=== PATIENT | female | born 1985 | race Caucasian/White ===

== ENCOUNTER → 2017-01-19 | Outpatient (CLI) | payer BC ==
[2017-01-19 08:22] LABS: THYROID STIMULATING HORMONE 6.68 uIU/mL (0.47-4.68)
[2017-01-20 06:39] LABS: THYROID PEROXIDASE (TPO) AB >600 IU/mL (0-34)
[2017-01-20 11:22] LABS: THYROGLOBULIN AB <1.0 IU/mL (0.0-0.9)
== END ==
LOC: LAB 07:13
DX: E06.3 Autoimmune thyroiditis (principal)
CPT/HCPCS: 36415; 84439; 84443; 84481; 86376

== ENCOUNTER → 2017-03-17 | Outpatient (CLI) | payer BC ==
[2017-03-17 08:13] LABS: HEMATOCRIT 41.3 % (36.0-47.0); HEMOGLOBIN 13.5 g/dL (12.0-15.5); HGB HCT DIFFERENCE -0.8; MEAN CORPUSCULAR HEMOGLOBIN 27.1 pg (27.0-33.4); MEAN CORPUSCULAR HGB CONC 32.6 g/dL (32.0-36.0); MEAN CORPUSCULAR VOLUME 83 fl (80-97); RED BLOOD COUNT 4.97 10^6/uL (3.72-5.28)
[2017-03-17 08:41] LABS: ALANINE AMINOTRANSFERASE 36 U/L (9-52); ALBUMIN 4.2 g/dL (3.5-5.0); ALKALINE PHOSPHATASE 88 U/L (38-126); ANION GAP 10 (5-19); ASPARTATE AMINO TRANSFERASE 21 U/L (14-36); BILIRUBIN,DIRECT 0.3 mg/dL (0.0-0.4); BILIRUBIN,TOTAL 0.5 mg/dL (0.2-1.3); BLOOD UREA NITROGEN 16 mg/dL (7-20); CARBON DIOXIDE 26 mmol/L (22-30); CHLORIDE 104 mmol/L (98-107); CHOLESTEROL 177.81 mg/dL (0-200); CREATININE RESULT 0.67 mg/dL (0.52-1.25); Direct HDL 55 mg/dL (>40); GLUCOSE 107 mg/dL (75-110); POTASSIUM 4.3 mmol/L (3.6-5.0); SODIUM 140.1 mmol/L (137-145); TOTAL PROTEIN 7.4 g/dL (6.3-8.2); TRIGLYCERIDES 80 mg/dL (<150)
[2017-03-17 08:57] LABS: DIRECT LDL 100 mg/dL (<100)
[2017-03-17 09:18] LABS: THYROID STIMULATING HORMONE 5.02 uIU/mL (0.47-4.68)
[2017-03-18 07:09] LABS: VITAMIN D 25-HYDROXY 32.4 ng/mL (30.0-100.0)
[2017-03-20 12:00] LABS: THYROID PEROXIDASE (TPO) AB >600 IU/mL (0-34)
== END ==
LOC: LAB 07:50
PROVIDERS: ATTEND Nurse Practitioner
DX: R63.5 Abnormal weight gain (principal); E03.9 Hypothyroidism, unspecified; Z79.899 Other long term (current) drug therapy
CPT/HCPCS: 36415; 80053; 80061; 82306; 82607; 83036; 84439; 84443; 85027; 86376

== ENCOUNTER → 2017-06-02 | Outpatient (CLI) | payer BC ==
[2017-06-02 12:01] LABS: FREE T3 4.38 pg/mL (2.77-5.27)
[2017-06-02 12:14] LABS: THYROID STIMULATING HORMONE 0.14 uIU/mL (0.47-4.68)
== END ==
LOC: LAB 10:44
PROVIDERS: ATTEND Nurse Practitioner
DX: E06.3 Autoimmune thyroiditis (principal)
CPT/HCPCS: 36415; 84439; 84443; 84481; 86376

== ENCOUNTER → 2017-09-27 | Outpatient (CLI) | payer BC ==
[2017-09-27 12:26] LABS: FREE T3 3.39 pg/mL (2.77-5.27)
[2017-09-27 12:40] LABS: THYROID STIMULATING HORMONE 1.85 uIU/mL (0.47-4.68)
[2017-09-28 07:30] LABS: THYROGLOBULIN AB <1.0 IU/mL (0.0-0.9); THYROID PEROXIDASE (TPO) AB >600 IU/mL (0-34)
[2017-09-28 14:57] LABS: CALCITONIN SERUM <2.0 pg/mL (0.0-5.0)
== END ==
LOC: LAB 11:17
PROVIDERS: ATTEND Physician Assistant Medical
DX: E03.9 Hypothyroidism, unspecified (principal); E06.3 Autoimmune thyroiditis; E04.2 Nontoxic multinodular goiter; E66.9 Obesity, unspecified; Z68.43 Body mass index [BMI] 50.0-59.9, adult
CPT/HCPCS: 36415; 82308; 84439; 84443; 84481; 86376; 86800

== ENCOUNTER → 2017-12-31 | Outpatient (CLI) | payer BC ==
[2018-01-04 07:11] LABS: LUTEINIZING HORMONE 15.7 mIU/mL (.); PROLACTIN 11.8 ng/mL (4.8-23.3)
== END ==
LOC: LAB 10:48
PROVIDERS: ATTEND Obstetrics & Gynecology Gynecology
DX: Z13.29 Encounter for screening for other suspected endocrine disorder (principal)
CPT/HCPCS: 36415; 83002; 84146; 84403

== ENCOUNTER → 2018-04-27 | Outpatient (CLI) | payer BC ==
[2018-04-27 09:44] LABS: FREE T3 3.83 pg/mL (2.77-5.27); FREE T4 (FREE THYROXINE) 1.64 ng/dL (0.78-2.19)
[2018-04-27 09:58] LABS: THYROID STIMULATING HORMONE 0.66 uIU/mL (0.47-4.68)
== END ==
LOC: LAB 08:42
PROVIDERS: ATTEND Physician Assistant Medical
DX: E03.9 Hypothyroidism, unspecified (principal)
CPT/HCPCS: 36415; 84439; 84443; 84481

== ENCOUNTER → 2019-03-13 | Outpatient (CLI) | payer BC | LOC: LAB 10:48 | PROVIDERS: ATTEND Nurse Practitioner | DX: N64.4 Mastodynia (principal); E66.01 Morbid (severe) obesity due to excess calories | CPT/HCPCS: 36415; 82670; 84144; 84146; 84443 ==

== ENCOUNTER → 2019-03-24 | Outpatient (CLI) | payer BC ==
[2019-03-24 11:38] LABS: ABSOLUTE EOSINOPHILS # (AUTO) 0.1 10^3/uL (0.0-0.6); ABSOLUTE LYMPHOCYTES (AUTO) 3.1 10^3/uL (0.5-4.7); ABSOLUTE MONOCYTES (AUTO) 0.4 10^3/uL (0.1-1.4); ABSOLUTE NEUT (AUTO) 5.6 10^3/uL (1.7-8.2); BASOPHILS % (AUTO) 0.5 % (0-2); HEMATOCRIT 40.8 % (36.0-47.0); HEMOGLOBIN 13.6 g/dL (12.0-15.5); MEAN CORPUSCULAR HEMOGLOBIN 27.2 pg (27.0-33.4); MEAN CORPUSCULAR HGB CONC 33.3 g/dL (32.0-36.0); MEAN CORPUSCULAR VOLUME 82 fl (80-97); MONOCYTES % (AUTO) 4.8 % (3-13); PLATELET COUNT 209 10^3/uL (150-450); RED BLOOD COUNT 4.99 10^6/uL (3.72-5.28); SEGMENTED NEUTROPHILS % (AUTO) 60.7 % (42-78); TOTAL CELLS COUNTED % (AUTO) 100 %; WHITE BLOOD COUNT 9.3 10^3/uL (4.0-10.5)
[2019-03-24 12:07] LABS: ALANINE AMINOTRANSFERASE 39 U/L (9-52); ALBUMIN 4.6 g/dL (3.5-5.0); ALKALINE PHOSPHATASE 96 U/L (38-126); AMYLASE 55 U/L (30-110); ANION GAP 11 (5-19); ASPARTATE AMINO TRANSFERASE 23 U/L (14-36); BILIRUBIN,DIRECT 0.3 mg/dL (0.0-0.4); BILIRUBIN,TOTAL 0.5 mg/dL (0.2-1.3); BLOOD UREA NITROGEN 10 mg/dL (7-20); CALCIUM 9.7 mg/dL (8.4-10.2); CARBON DIOXIDE 27 mmol/L (22-30); CHLORIDE 102 mmol/L (98-107); GLUCOSE 95 mg/dL (75-110); LIPASE 51.2 U/L (23-300); SODIUM 139.9 mmol/L (137-145); TOTAL PROTEIN 7.8 g/dL (6.3-8.2)
== END ==
LOC: LAB 11:24
PROVIDERS: ATTEND Nurse Practitioner
DX: R11.2 Nausea with vomiting, unspecified (principal); R10.84 Generalized abdominal pain
CPT/HCPCS: 36415; 80053; 82150; 83690; 85025

== ENCOUNTER → 2019-04-27 | Outpatient (CLI) | payer BC ==
[2019-04-27 14:26] LABS: ABSOLUTE BASOPHILS # (AUTO) 0.1 10^3/uL (0.0-0.2); ABSOLUTE EOSINOPHILS # (AUTO) 0.1 10^3/uL (0.0-0.6); ABSOLUTE LYMPHOCYTES (AUTO) 2.3 10^3/uL (0.5-4.7); ABSOLUTE MONOCYTES (AUTO) 0.4 10^3/uL (0.1-1.4); ABSOLUTE NEUT (AUTO) 5.8 10^3/uL (1.7-8.2); BASOPHILS % (AUTO) 0.8 % (0-2); EOSINOPHILS % (AUTO) 1.4 % (0-6); HEMATOCRIT 38.4 % (36.0-47.0); HEMOGLOBIN 12.8 g/dL (12.0-15.5); MEAN CORPUSCULAR HEMOGLOBIN 27.2 pg (27.0-33.4); MEAN CORPUSCULAR HGB CONC 33.4 g/dL (32.0-36.0); MEAN CORPUSCULAR VOLUME 81 fl (80-97); MONOCYTES % (AUTO) 4.1 % (3-13); PLATELET COUNT 176 10^3/uL (150-450); RED BLOOD COUNT 4.73 10^6/uL (3.72-5.28); RED CELL DISTRIBUTION WIDTH 13.6 % (11.5-14.0); SEGMENTED NEUTROPHILS % (AUTO) 66.7 % (42-78); TOTAL CELLS COUNTED % (AUTO) 100 %; WHITE BLOOD COUNT 8.7 10^3/uL (4.0-10.5)
== END ==
LOC: LAB 14:04
PROVIDERS: ATTEND Nurse Practitioner
DX: E06.3 Autoimmune thyroiditis (principal); R10.13 Epigastric pain
CPT/HCPCS: 36415; 84436; 84481; 85025; 86376

== ENCOUNTER → 2019-05-03 | Outpatient (CLI) | payer BC ==
--- NOTE | 2019-05-03 11:07 | RADIOLOGY REPORT (SQ) ---
EXAM DESCRIPTION: U/S ABDOMEN COMPLETE W/O DOP COMPLETED DATE/TIME: 05/03/2019 10:42 am REASON FOR STUDY: EPIGASTRIC PAIN R10.13 EPIGASTRIC PAIN COMPARISON: None. TECHNIQUE: Dynamic and static grayscale images acquired of the abdomen and recorded on PACS. Additio nal selected color Doppler and spectral images recorded. Note: Study does not meet criteria for complete doppler/duplex scan LIMITATIONS: None. FINDINGS: PANCREAS: No masses. The tail is poorly seen. LIVER: Increased echogenicity. No masses. Hepatomegaly. LIVER VASCULATURE: Normal directional flow of the main portal vein and hepatic veins. GALLBLADDER: Surgically absent. ULTRASOUND-DETECTED VANN'S SIGN: Not applicable. INTRAHEPATIC DUCTS AND COMMON DUCT: CBD and intrahepatic ducts normal caliber. No filling defects. INFERIOR VENA CAVA: Normal flow. AORTA: No aneurysm. RIGHT KIDNEY: 12.4 cm. Normal echogenicity. No solid or suspicious masses. No hydronephrosis. No calcifications. LEFT KIDNEY: 10.7 cm. Normal echogenicity. No solid or suspicious masses. No hydronephrosis. No calcifications. SPLEEN: Normal size, 11.8 cm. No solid masses. PERITONEAL AND PLEURAL SPACES: No ascites or effusions. OTHER: No other significant finding. IMPRESSION: Hepatomegaly. Hepatic steatosis. TECHNICAL DOCUMENTATION: JOB ID: [id number] [employer]- All Rights Reserved Reading location - IP/workstation name: [email or web address]
== END ==
LOC: RAD 09:30
PROVIDERS: ATTEND Nurse Practitioner
DX: K76.0 Fatty (change of) liver, not elsewhere classified (principal); R16.0 Hepatomegaly, not elsewhere classified; R10.13 Epigastric pain; R11.2 Nausea with vomiting, unspecified
CPT/HCPCS: 76700

== ENCOUNTER 2019-06-01 11:20 | Day surgery (SDC) | payer BC ==
[2019-06-01] MEDS ORDERED: DIPHENHYDRAMINE HCL 50 MG/ML VIAL ONE (12:06)
[2019-06-01] MEDS ORDERED: ONDANSETRON HCL INJ/PF 4 MG/2 ML SDV ONE (12:06)
[2019-06-01] MEDS ORDERED: FENTANYL CITRATE INJ/PF 100 MCG/2 ML AMPUL ONE (12:06)
[2019-06-01] MEDS ORDERED: GLUCAGON,HUMAN RECOMB 1 MG INJ ONE (12:07)
[2019-06-01] MEDS ORDERED: EPINEPHRINE INJ 1 MG/10 ML DISP.SYRIN ONE (12:07)
[2019-06-01] MEDS ORDERED: NALOXONE HCL INJ/PF 0.4 MG/1 ML SDV ONE (12:07)
[2019-06-01] MEDS ORDERED: FLUMAZENIL INJ 0.5 MG/5 ML VIAL ONE (12:07)
[2019-06-01] MEDS ORDERED: MIDAZOLAM 2 MG/2 ML INJ ONE (12:08)
[2019-06-01] MEDS ORDERED: MIDAZOLAM 2 MG/2 ML INJ IV ONE ×4 (12:09→12:16)
[2019-06-01] MEDS ORDERED: FENTANYL CITRATE INJ/PF 50 MCG/1 ML 50 ML SDV IV ONE ×3 (12:09→12:13)
--- NOTE | 2019-06-01 12:21 | Operative Report ---
Operative Report DATE OF SURGERY: 06/01/19 Operative Report: The risks benefits and alternatives of the procedure explained to the patient in detail and informed consent is obtained.A GIF Olympus video scope was inserted into the patient's mouth and hypopharynx, the esophagus is identified intubated and insufflated, the scope was then advanced through the esophagus stomach and duodenum, retroflexion maneuver is done, the esophagus stomach and first and second portions of the duodenum examined. PREOPERATIVE DIAGNOSIS: Epigastric pain rule out peptic ulcer disease POSTOPERATIVE DIAGNOSIS: Gastritis status post biopsy for Helicobacter pylori OPERATION: EGD with biopsy SURGEON: OTILIA EL ANESTHESIA: Moderate Sedation - 6 mg of Versed, 100 mcg of fentanyl. Conscious sedation monitoring time 30 minutes. TISSUE REMOVED OR ALTERED: As noted above. COMPLICATIONS: None. ESTIMATED BLOOD LOSS: None. INTRAOPERATIVE FINDINGS: As noted above. PROCEDURE: Patient tolerated the procedure well. No immediate postprocedure complications are noted. Patient is discharged in good condition. Discharge date 06/01/2019. Discharge diet: Regular. Discharge activity: Regular. 2 to 3-week follow-up to discuss findings. Patient is instructed to call the office or proceed to the emergency room should there be any further problems or questions. Wait on the pathology.
[2019-06-01 14:11] VITALS: BP 138/78
== END 2019-06-01 13:25 | disposition home or self-care (01) ==
LOC: END 11:20
PROVIDERS: ATTEND Internal Medicine Gastroenterology
DX: K29.50 Unspecified chronic gastritis without bleeding (principal); K21.9 Gastro-esophageal reflux disease without esophagitis
CPT/HCPCS: 88342 ×2; 88305 ×2; J2250; J3010 ×2; J0171; J1200; J1610; J2310; J2405; J3490

== ENCOUNTER → 2020-03-01 | Outpatient (CLI) | payer BC ==
[2020-03-01 10:35] LABS: HEMATOCRIT 38.8 % (36.0-47.0); HEMOGLOBIN 13.2 g/dL (12.0-15.5); MEAN CORPUSCULAR HEMOGLOBIN 28.2 pg (27.0-33.4); MEAN CORPUSCULAR HGB CONC 33.9 g/dL (32.0-36.0); MEAN CORPUSCULAR VOLUME 83 fl (80-97); PLATELET COUNT 166 10^3/uL (150-450); RED BLOOD COUNT 4.67 10^6/uL (3.72-5.28); RED CELL DISTRIBUTION WIDTH 13.5 % (11.5-14.0); WHITE BLOOD COUNT 7.9 10^3/uL (4.0-10.5)
[2020-03-01 11:03] LABS: ALBUMIN 4.4 g/dL (3.5-5.0); ALKALINE PHOSPHATASE 98 U/L (38-126); ANION GAP 10 (5-19); ASPARTATE AMINO TRANSFERASE 20 U/L (14-36); BILIRUBIN,TOTAL 0.5 mg/dL (0.2-1.3); BLOOD UREA NITROGEN 15 mg/dL (7-20); CALCIUM 9.3 mg/dL (8.4-10.2); CARBON DIOXIDE 27 mmol/L (22-30); CHLORIDE 101 mmol/L (98-107); CHOLESTEROL 197.91 mg/dL (0-200); GLUCOSE 92 mg/dL (75-110); TOTAL PROTEIN 7.4 g/dL (6.3-8.2); TRIGLYCERIDES 98 mg/dL (<150)
[2020-03-01 11:14] LABS: DIRECT LDL 129 mg/dL (<100)
== END ==
LOC: OD 09:29
PROVIDERS: ATTEND Nurse Practitioner
DX: Z00.00 Encounter for general adult medical examination without abnormal findings (principal); E06.3 Autoimmune thyroiditis; M89.9 Disorder of bone, unspecified; Z79.899 Other long term (current) drug therapy
CPT/HCPCS: 36415; 80053; 80061; 82306; 82607; 83036; 85027

== ENCOUNTER → 2020-03-21 | Outpatient (CLI) | payer BC ==
[2020-03-22 08:39] LABS: MUMPS IGG AB 36.9 AU/mL (Immune >10); RUBEOLA IGG AB >300.0 AU/mL (Immune >16)
== END ==
LOC: OD 09:09
PROVIDERS: ATTEND Nurse Practitioner
DX: Z01.84 Encounter for antibody response examination (principal)
CPT/HCPCS: 36415; 86317; 86735; 86762; 86765

== ENCOUNTER → 2020-05-21 | Outpatient (CLI) | payer BC ==
[2020-05-21 18:25] LABS: FREE T3 3.86 pg/mL (2.77-5.27); FREE T4 (FREE THYROXINE) 1.7 ng/dL (0.78-2.19)
[2020-05-21 18:39] LABS: THYROID STIMULATING HORMONE 0.04 uIU/mL (0.47-4.68)
== END ==
LOC: OD 15:58
PROVIDERS: ATTEND Internal Medicine Endocrinology, Diabetes & Metabolism
DX: E03.9 Hypothyroidism, unspecified (principal); E06.3 Autoimmune thyroiditis
CPT/HCPCS: 36415; 84439; 84443; 84481

== ENCOUNTER → 2020-10-02 | Outpatient (CLI) | payer BC ==
[~2020-10-02] MED LIST: COVID-19 VACCINE (PFIZER)/PF 30 MCG/0.3 ML VIAL IM ONE; EPINEPHRINE INJ/PF 1 MG/1 ML AMPULE IM PRN
== END ==
LOC: EMPHEALTH 11:46
PROVIDERS: ATTEND Internal Medicine
DX: Z23 Encounter for immunization (principal)
CPT/HCPCS: 91300

== ENCOUNTER → 2020-10-23 | Outpatient (CLI) | payer BC | LOC: EMPHEALTH 11:37 | PROVIDERS: ATTEND Internal Medicine | DX: Z23 Encounter for immunization (principal) | CPT/HCPCS: 91300 ==